=== PATIENT | female | born 1980 | race Caucasian/White ===

== ENCOUNTER 2016-12-04 01:22 | Inpatient (IN) | payer MEDICARE, OTHER ==
--- NOTE | ~2016-12-04 | PN ---
Unit #: [id number] #: [id number] Patient: MILIND ZUNIGA [id number] [facility] [address] [place] [address] [id number] MR#: [id number] NAME: MILIND ZUNIGA. ROOM: P121 Age: 36 Sex: F Admission Date: 12/04/2016 : 1980 Attending Physician: Yue Cartagena M.D. Admitting Physician: Yue Cartagena M.D. Primary Care Physician: Brianna Brito PROGRESS NOTES DATE OF SERVICE 12/05/2016 DISCUSSION Ms. Zuniga is a 36-year-old white female with mood disorder who was seen today and chart was reviewed and case was discussed with the staff. She has been agitated, irritable, restless, anxious, and showing poor frustration tolerance as well as poor anxiety and motivation towards her treatment and has been changing her stories stating that she is not suicidal anymore. Meanwhile, she has been taking medications and tolerating them fairly well with no reported side effects. MENTAL STATUS EXAMINATION Young white female who was casually dressed with fair personal hygiene, appears to be in no acute distress or discomfort. She was awake and alert with impaired attention and concentration. Her mood was anxious with congruent affect. She denies any suicidal or homicidal ideations. Her insight and judgement remains significantly impaired. TREATMENT PLAN 1. We will continue her on her current medications and treatment protocol. We will monitor her response to the medication and make further adjustments as needed. 2. We will continue to follow up. Dictated by... Toh Kulkarni/ana cristina TD: 12/06/2016 00:42 JOB #: [id number] Unit #: [id number] #: [id number] Patient: MILIND ZUNIGA [facility] PROGRESS NOTES X Yue Cartagena MD PROGRESS NOTE
--- NOTE | ~2016-12-04 | HP ---
Unit #: [id number] #: [id number] Patient: ABILIO WANG [id number] [place] [address] [id number] MR#: [id number] NAME: ABILIO WANG ROOM: P121 Age: 36 Sex: F Admission Date: 12/04/2016 : 1980 Attending Physician: Yue Cartagena M.D. Admitting Physician: Yue Cartagena M.D. Primary Care Physician: Naldo Monae Pa-C HISTORY AND PHYSICAL HISTORY OF PRESENT ILLNESS Abilio is a 36-year-old female admitted to [address] [place] [address] with depression and verbalizing wanting to hurt herself. PAST MEDICAL HISTORY Nothing significant PAST SURGICAL HISTORY 1. Appendectomy. 2. Tubal ligation. ALLERGIES Aspirin. SOCIAL HISTORY Smokes greater than one pack per day. Denies alcohol and illicit drug use. FAMILY HISTORY Medically noncontributory. REVIEW OF SYSTEMS CONSTITUTIONAL: No fever or chills. HEENT: Denies any sore throat, ear pain or runny nose. CARDIOVASCULAR: Denies chest pain, irregular heart rhythm or palpitations. CHEST: Denies shortness of breath or cough. No hemoptysis. GASTROINTESTINAL: Denies nausea, vomiting, diarrhea or chronic constipation. ENDOCRINE: Denies history of increased thirst or urination. No recent significant weight loss or gain. GENITOURINARY: Denies dysuria, frequency, or hematuria. SKIN: Denies any rashes. HEMATOLOGIC: Denies history of increased bleeding or bruising. MUSCULOSKELETAL: Denies any hot, swollen joints. No generalized muscle pain. NEUROLOGIC: Denies problems with vision or speech. No frequent, severe headaches. No numbness, tingling or weakness in any extremities. Denies loss of bladder or bowel control. CURRENT MEDICATIONS 1. Seroquel 100 mg q.h.s. Unit #: [id number] #: [id number] Patient: ABILIO WANG 2. Thorazine 50 mg q.6 h. p.r.n. 3. Prozac 20 mg daily 4. Nicotine patch 14 mg daily 5. Milk of Magnesia p.r.n. 6. Maalox p.r.n. 7. Tylenol p.r.n. PHYSICAL EXAMINATION GENERAL: Alert, well-nourished, in no apparent distress. VITAL SIGNS: Blood pressure 120/72, heart rate 80, respirations 16, temperature 98.6. WEIGHT: 126 pounds. HEIGHT: 5'3". SKIN: Warm and dry without rash or lesion. HEENT: Normocephalic. TMs not viewed. Oral and nasal passages clear. Conjunctivae clear. Pupils equal, round and reactive to light and accommodation. Extraocular movements intact. NECK: Supple without lymphadenopathy or thyromegaly. HEART: Regular rate and rhythm without murmur. LUNGS: Clear. ABDOMEN: Soft, nontender. : Not done. EXTREMITIES: No evidence of cyanosis, clubbing or edema. Moves all extremities without focal deficit. NEUROLOGICAL: Grossly within normal limits. Cranial Nerves: II: Visual choi are intact. III, IV AND : Extraocular movements are intact. Pupils are equal, round and reactive to light. V: Facial sensation is grossly normal. VII: Facial movements and expression are normal. VIII: Auditory acuity grossly intact. IX, X: Uvula is midline. Phonation is normal. XI: Patient shrugs shoulders and turns head normally. XII: Tongue protrudes in the midline. Sensory and Motor Function: Sensory and motor sensation is grossly normal. Motor: moves all extremities well. Coordination: Gait is normal. Deep Tendon Reflexes: Intact. IMPRESSION 1. Psychiatric admission. RECOMMENDATIONS PSYCHIATRIC: Per psychiatrist. MEDICAL: I see no contraindications to participating in facility's activities. MEDICAL PROGNOSIS Good. MEDICAL CONDITION Stable. Dictated by... Abigail Abdul P.A.-C. for Brandon Mason M.D. Unit #: [id number] #: [id number] Patient: ABILIO WANG YARY/ana rcistina TD: 12/04/2016 20:00 JOB #: [id number] HISTORY AND PHYSICAL X Abigail Abdul X HISTORY AND PHYSICAL
--- NOTE | ~2016-12-04 | PN ---
Unit #: [id number] #: [id number] Patient: MILIND ZUNIGA [id number] [facility] [address] [place] [address] [id number] I MR#: [id number] NAME: MILIND ZUNIGA ROOM: P121 Age: 36 Sex: F Admission Date: 12/04/2016 : 1980 Attending Physician: Yue Cartagena M.D. Admitting Physician: Yue Cartagena M.D. Primary Care Physician: Naldo Monae Pa-C [facility] PROGRESS NOTES DATE 12/08/2016 DISCUSSION Ms. Zuniga is a 36-year-old white female who was seen today and chart was reviewed and case was discussed with the staff. She has been anxious, withdrawn and rather seclusive to herself. Meanwhile, she has been cooperative with treatment recommendations as she has been taking the medications and tolerating them fairly well with no reported side effects. MENTAL STATUS EXAMINATION A young white female who was casually dressed with fair personal hygiene, appears to be in no acute distress or discomfort. She was awake and alert on interaction with intact orientation. Her mood was anxious and depressed with congruent affect. Her speech was slow and goal-directed. She denies any suicidal or homicidal ideations. Her insight and judgement remains slightly impaired. TREATMENT PLAN 1. We will continue her on her current treatment protocol. We will monitor her response and make further adjustments as needed. 2. We will continue to follow up. Dictated by... Tho Kulkarni/ana cristina TD: 12/10/2016 03:16 JOB #: [id number] [facility] PROGRESS NOTES X Yue Cartagena MD PROGRESS NOTE
--- NOTE | ~2016-12-04 | DS ---
Unit #: [id number] #: [id number] Patient: MILIND WANG [id number] [facility] [address] [place] [address] [id number] MR#: [id number] NAME: MILIND WANG. ROOM: P121 Age: 36 Sex: F Admission Date: 12/04/2016 : 1980 Discharge Date: 12/09/2016 Attending Physician: Yue Cartagena M.D. Primary Care Physician: Naldo Monae Pa-C DISCHARGE SUMMARY IDENTIFYING DATA Ms. Castelan is a 36-year-old single white female who was brought to the hospital accompanied by her stepmother and sister. DISCHARGE DIAGNOSES Psychiatric: Major depressive disorder, recurrent, moderate, without psychotic features. Medical: None. Stressors: Moderate psychosocial stressors. HISTORY OF PRESENT ILLNESS Please see initial psychiatric evaluation for details. PAST PSYCHIATRIC HISTORY Please see initial psychiatric evaluation for details. PAST MEDICAL HISTORY Please see initial psychiatric evaluation for details. HOSPITAL COURSE The patient was admitted to the adult psychiatric unit at [facility] and was oriented to the hospital environment. Routine p.r.n. medications were initiated, and she was started back on her home medications and Prozac and Seroquel were started to help with depression as the patient seen to be exhibiting significant depressive symptoms upon presentation; however, she was seen to be polite and pleasant, and compliant with treatment recommendation, and was taking the medications regularly and was tolerating them fairly well, and was able to show a decent and therapeutic response with improvement in depressive symptoms, and was denying any further suicidal or homicidal ideations, and was willing to continue treatment on an outpatient basis and as such, it was decided that she will be discharged home and will continue treatment on an outpatient basis. DISCHARGE MEDICATIONS Prozac 20 mg a day for depression and Seroquel 100 mg at bedtime for depression. DISCHARGE CONDITION Stable. PROGNOSIS Fair. Unit #: [id number] #: [id number] Patient: MILIND WANG Dictated by... Tho Kulkarni/teodorol TD: 12/09/2016 07:20 JOB #: [id number] DISCHARGE SUMMARY X Yue Cartagena MD DISCHARGE SUMMARY
--- NOTE | ~2016-12-04 | PN ---
Unit #: [id number] #: [id number] Patient: MILIND ZUNIGA [id number] [facility] [address] [place] [address] [id number] I MR#: [id number] NAME: MILIND ZUNIGA ROOM: P121 Age: 36 Sex: F Admission Date: 12/04/2016 : 1980 Attending Physician: Yue Cartagena M.D. Admitting Physician: Yue Cartagena M.D. Primary Care Physician: Brianna Brito PROGRESS NOTES DATE 12/06/2016 DISCUSSION Ms. Zuniga is a 36-year-old white female who was seen today and chart was reviewed and case was discussed with the staff. She has been anxious, restless, agitated, irritable. Meanwhile, she has been taking medications and tolerating them fairly well with no reported side effects. MENTAL STATUS EXAMINATION Young white female who was casually dressed with fair personal hygiene and appears to be in no acute distress or discomfort. She was awake and alert on interaction with intact orientation. Her mood was anxious with congruent affect. She denies any suicidal or homicidal ideations. Her insight and judgement remains significantly impaired. TREATMENT PLAN Will continue on current medications and treatment protocol. Will monitor her response and make further adjustments as needed. Dictated by... Tho Kulkarni/isra TD: 12/06/2016 17:23 JOB #: [id number] [facility] PROGRESS NOTES X Yue Cartagena MD X PROGRESS NOTE
--- NOTE | ~2016-12-04 | PN ---
Unit #: [id number] #: [id number] Patient: MILIND ZUNIGA [id number] [facility] [address] [place] [address] [id number] I MR#: [id number] NAME: MILIND ZUNIGA. ROOM: P121 Age: 36 Sex: F Admission Date: 12/04/2016 : 1980 Attending Physician: Yue Cartagena M.D. Admitting Physician: Yue Cartagena M.D. Primary Care Physician: Brianna Brito PROGRESS NOTES DATE December 07, 2016 DISCUSSION Ms. Zuniga is a 36-year-old white female, who was seen today and chart was reviewed and the case was discussed with the staff. She has been anxious, withdrawn, and rather seclusive to herself. Meanwhile, she has been cooperative with the treatment recommendations and she has been taking the medications and tolerating them fairly well with no reported side effects. MENTAL STATUS EXAMINATION Young white female, who was casually dressed with fair personal hygiene and appears to be in no acute distress or discomfort. She was awake and alert with impaired attention and concentration. Her mood was anxious with a congruent affect. Her speech is slow and goal-directed. The patient denies any suicidal or homicidal ideations. Her insight and judgment remain slightly impaired. TREATMENT PLAN 1. We will continue her on her current medications and treatment protocol, and will monitor her response, and make further adjustments as needed. 2. We will continue to followup. Dictated by... Tho Kulkarni/jose l TD: 12/09/2016 12:43 JOB #: [id number] Unit #: [id number] #: [id number] Patient: MILIND ZUNIGA [facility] PROGRESS NOTES X Yue Cartagena MD PROGRESS NOTE
--- NOTE | ~2016-12-04 | PA ---
Unit #: [id number] #: [id number] Patient: [facility]UNIGA [id number] [facility] [address] [place] [address] [id number] MR#: [id number] NAME: MILIND ZUNIGA ROOM: P121 Age: 36 Sex: F Admission Date: 12/04/2016 : 1980 Date of Assessment: Attending Physician: Yue Cartagena M.D. Admitting Physician: Yue Cartagena M.D. Primary Care Physician: Naldo Monae Pa-C PSYCHIATRIC ASSESSMENT DATE OF SERVICE 12/04/2016. IDENTIFYING DATA Ms. Zuniga is a 36-year-old single, disabled, white female, who was a resident of [place], [place] and was brought to the hospital, accompanied by her stepmother and sister. CHIEF COMPLAINT "My whole life is messed up." HISTORY OF PRESENT ILLNESS Ms. Zuniga is a 36-year-old single, disabled, white female with a history of mood disorder, who was brought to the hospital by her family, stating that she does not want to be here and that she does not like to talk about it and she went home. She would not feel safe and stated that her family is here due to her not feeling safe, particularly if she wished to get home. Mother states the patient just went through a recent breakup a week ago and she had known him since she was 19 years old, and the patient has given up her house to live with now ex-boyfriend and she lost her car as well, and she reports that she now lives with her parents after giving up her home to live with now ex-boyfriend, whom she had a breakup about a week ago and does endorse increasing depression, anxiety, disturbed sleep, psychomotor retardation, feelings of hopelessness and helplessness, and suicidal ideation. SUBSTANCE ABUSE HISTORY The patient denies any alcohol or drug abuse. PAST PSYCHIATRIC HISTORY The patient has had a [facility] the age of 15 [facility], and review of the medical records indicate that currently she is not active in any treatment program, is not seeing a psychiatrist, and is not taking any psychotropic medications. PAST MEDICAL HISTORY No acute or chronic medical illnesses. ALLERGIES Aspirin, pertussis. PERSONAL AND SOCIAL HISTORY A 36-year-old white female, who reports that she is single, unemployed, Unit #: [id number] #: [id number] Patient: MILIND ZUNIGA disabled, and now lives at home with her parents. MENTAL STATUS EXAMINATION Young white female, who was casually dressed with fair personal hygiene, appears to be in no acute distress or discomfort. She was awake and alert on interaction with intact orientation to time, place, and person. Her mood was anxious and depressed with a congruent affect. Her speech was slow and goal directed. She reports having suicidal ideations, but denies any homicidal ideations and also denies any auditory or visual hallucinations. Her insight and judgment remain significantly impaired. DIAGNOSTIC IMPRESSION Psychiatric: Major depressive disorder, recurrent, moderate, without psychotic features. Medical: None. Stressors: Moderate psychosocial stressors. TREATMENT PLAN 1. The patient has presented with history of mood disorder and has been decompensating and will need inpatient hospitalization for safety and stabilization. We will start her back on home medications, and we will adjust the medications and monitor response. 2. Supportive therapy was provided to the patient. 3. Safe, structured, and nourishing environment will be provided. ESTIMATED LENGTH OF STAY 5 to 7 days. ABILITY TO HELP SELF Limited. WILLINGNESS TO HELP SELF The patient appears to be willing to help self. STRENGTHS 1. Communicative. 2. Cooperative. PROBLEMS 1. Chronic dysphoric symptoms. 2. Poor social support system. DISCHARGE CRITERIA This will be contingent upon the patient's ability to show resolution of her depression and anxiety, and her ability to stay safe to herself, particularly after discharge from the hospital. Dictated by... Tho Kulkarni/mylene TD: 12/04/2016 06:47 JOB #: [id number] Unit #: [id number] #: [id number] Patient: MILIND ZUNIGA PSYCHIATRIC ASSESSMENT X Yue Cartagena MD PSYCHIATRIC ASSESSMENT
[~2016-12-04 01:22] MED LIST: ALBUTEROL17 GM INH; ALPRAZOLAM PO; AMOXICILLIN PO; BACTRIM DS TABL1 TA1 PO; BACTRIM DS TABL1 TAB PO; BENTYL20 MG PO; BENZONATATE PO; CLARITIN10 MG PO; COMPAZINE10 MG PO; EC-NAPROSYN500 MG PO; FLEXERIL PO; FLEXERIL10 M1 PO; FLEXERIL10 MG PO; HYDROCODON-ACE1 EAC7 PO; IBUPROFEN PO; IBUPROFEN800 MG PO; LORTAB 10-5001 EACH PO; LORTAB 5/500 TA1 TA1 PO; LORTAB 5/500 TA1 TA2 PO; MEDROL DOSEPAK4 MG DOB; MEDROL PO; MUCINEX D1 TAB.SR1; NAPROSYN500 MG PO; NAPROXEN250 MG PO; NO MEDICATIONS; OMEPRAZOLE40 MG PO; ORUDIS75 M1 PO; PENICILLIN; PHENERGAN W/CO120 ML PO; PREDNISONE PO; PROMETHAZINE D118 ML PO; ULTRAM PO; VICODIN 5/500 T1 TAB PO; VITAMIN D PO; VOLTAREN75 MG PO; XANAX0.5 MG PO; ZITHROMAX PO; ZITHROMAX1 G/PKT PO
[2016-12-04 09:24] LABS: BASOPHIL% 0.6 % (0-2.5); EOSINOPHIL# 0.1 X10e3 (0-0.7); EOSINOPHIL% 1.7 % (0.0-7.0); HEMATOCRIT 43.3 % (35.0-45.0); HEMOGLOBIN 14.5 gm/dL (12.0-16.0); LYMPHOCYTE# 2.8 X10e3 (1.0-3.5); LYMPHOCYTE% 35.9 % (17.0-45.0); MEAN CELL VOLUME 96.2 FL (83-96); MEAN CORPUSCULAR HEMOGLOBIN 32.2 PG (28-34); MEAN CORPUSCULAR HGB CONC 33.5 g/dL (30-36); MONOCYTE# 0.5 X10e3 (0-1.0); MONOCYTE% 6.6 % (3.0-12.0); NEUTROPHIL# 4.3 X10e3 (1.5-7.1); NEUTROPHIL% 55.2 % (40-75); PLATELET COUNT 158 X10e3 (140-420); RED BLOOD COUNT 4.51 X10e (3.90-5.30); RED CELL DISTRIBUTION WIDTH 13.5 % (11.0-15.5); WHITE BLOOD COUNT 7.7 X10e3 (4.0-10.5)
[2016-12-04 09:28] LABS: DIFF IND NO
[2016-12-04 09:33] LABS: ALBUMIN SERUM 3.4 g/dL (3.5-5.0); ALKALINE PHOSPHATASE 69 U/L (32-92); ALT (SGPT) 9 U/L (10-40); AST (SGOT) 13 U/L (10-42); BILIRUBIN,TOTAL 0.4 mg/dL (0.2-2.0); BLOOD UREA NITROGEN 9 mg/dL (9-23); BUN/CREATININE RATIO 12.85; CALCIUM SERUM 8.6 mg/dL (8.4-10.2); CARBON DIOXIDE 27 mmol/L (22-31); CHLORIDE 106 mmol/L (100-111); CREATININE SERUM 0.7 mg/dL (0.6-1.4); GLOM FILT RATE Estimated ABOVE60 mL/min (>60); GLUCOSE FASTING 82 mg/dL (70-110); POTASSIUM 3.5 mmol/L (3.5-5.1); PROTEIN TOTAL SERUM 6.1 g/dL (6.0-8.3); SODIUM 139 mmol/L (135-145)
== END 2016-12-09 10:30 | disposition home or self-care (01) | DRG 885 ==
LOC: P1S 01:22
PROVIDERS: Psychiatry & Neurology Psychiatry
DX: F33.1 Major depressive disorder, recurrent, moderate (principal); F41.9 Anxiety disorder, unspecified; F17.200 Nicotine dependence, unspecified, uncomplicated
CPT/HCPCS: 80053; 85025